=== PATIENT | female | born 2000 | race Caucasian/White ===

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

== ENCOUNTER 2018-02-18 22:11 | Emergency (ER) | payer OTHER, MEDICAID ==
[~2018-02-18] VITALS: Ht 142.2 cm; Wt 41.8 kg
[2018-02-18] MEDS ORDERED: ONDANSETRON ODT 4 MG PO ONE (22:30)
[2018-02-18] MEDS ORDERED: IBUPROFEN 200 MG TABLET PO ONE (22:30)
[2018-02-18 23:03] LABS: RAPID INFLUENZA A Negative (Negative); RAPID INFLUENZA B Negative (Negative)
[2018-02-18 23:06] VITALS: BP 107/78
[2018-02-18] MEDS ORDERED: ONDANSETRON ODT 4 MG ONE (23:17)
[2018-02-18] MEDS ORDERED: IBUPROFEN 600 MG TABLET ONE (23:17)
== END 2018-02-18 23:31 | disposition home or self-care (01) ==
LOC: ED 22:24
DX: J20.9 Acute bronchitis, unspecified (principal); B34.9 Viral infection, unspecified
CPT/HCPCS: 71046; 87400; 93005; 99284; Q0162

== ENCOUNTER 2018-05-14 15:28 | Emergency (ER) | payer OTHER, MEDICAID ==
[~2018-05-14] VITALS: Ht 142.2 cm; Wt 43.0 kg
[2018-05-14 15:29] VITALS: BP 117/82
--- NOTE | 2018-05-14 15:43 | NUR ---
"SOMETHING INVOLVING THIS (LEFT) LYMPHNODE AND TONSIL, THIS (RIGHT) NOSTIL HAS BEEN BLEEDING FROM BLOWING MY NOSE. IT'S GETTING BETTER BUT THIS COUGH IS BUGGING ME AND IT HURTS WHEN I SWOLLOW" PER TRIAGE NOTE OXYGEN SATS 97% AT RA HR 90-100'S
--- NOTE | 2018-05-14 16:42 | NUR ---
GIVEN ALL DC INSTRUCTION WITH PRESCRIPTION PT UNDERSTOOD PT UP AMBULATED TO CHECK OUT
== END 2018-05-14 16:44 | disposition home or self-care (01) ==
LOC: ED 16:06
DX: J00 Acute nasopharyngitis [common cold] (principal); F17.200 Nicotine dependence, unspecified, uncomplicated; F32.9 Major depressive disorder, single episode, unspecified
CPT/HCPCS: 71046; 99283

== ENCOUNTER 2019-01-14 07:28 | Inpatient (IN) | payer OTHER, MEDICAID ==
[~2019-01-14] VITALS: Ht 142.2 cm; Wt 52.7 kg
[~2019-01-14 07:28] MED LIST changes: -ALPR-475 PO; +ALPR0.5T7 PO
[2019-01-14] MEDS ORDERED: OXYTOCIN 30U/ 0.9% NaCL 500ML 500 ML IV PRN (07:37)
[2019-01-14] MEDS ORDERED: D5%-LACTATED RINGERS 1,000 ML IV SCH (07:37)
[2019-01-14] MEDS ORDERED: OXYTOCIN 30U/ 0.9% NaCL 500ML 500 ML IV ONE (07:37)
[2019-01-14] MEDS ORDERED: NEWBORN KIT ONE (07:43)
[2019-01-14] MEDS ORDERED: OXYTOCIN 30U/ 0.9% NaCL 500ML 500 ML ONE ×3 (07:43→23:59)
[2019-01-14] MEDS ORDERED: FENTANYL PF 100 MCG/2ML IVPush PRN (08:00)
[2019-01-14] MEDS ORDERED: TERBUTALINE 1 MG/ML, 1ML SQ PRN (08:00)
[2019-01-14] MEDS ORDERED: TERBUTALINE 1 MG/ML, 1ML IVPush PRN (08:00)
[2019-01-14] MEDS ORDERED: PENICILLIN GK 5,000,000 UNITS in DEXTROSE 5% 100 ML IVPB ONE (08:00)
[2019-01-14] MEDS ORDERED: ONDANSETRON 2MG/ML, 2ML IVPush PRN ×2 (08:00→14:30)
[2019-01-14] MEDS ORDERED: CALCIUM CARBONATE 500 MG TAB.CHEW PO PRN ×2 (08:00→23:30)
[2019-01-14] MEDS ORDERED: FENTANYL PF 100 MCG/2ML IV PRN (08:00)
[2019-01-14] MEDS: LACTATED RINGERS 1,000 ML IV SCH ×2 (08:52→11:11)
[2019-01-14 09:03] LABS: BASOPHILS # (AUTO) 0.03 x10^3/uL (0-0.3); BASOPHILS % (AUTO) 0 % (0-1); EOSINOPHILS # (AUTO) 0.12 x10^3/uL (0-0.8); EOSINOPHILS % (AUTO) 1 % (1-7); LYMPHOCYTES # (AUTO) 2.06 x10^3/uL (1-6.1); LYMPHOCYTES % (AUTO) 19 % (22-44); MD NO; MEAN CORPUSCULAR HEMOGLOBIN 30.6 pg (27.0-34.8); MEAN CORPUSCULAR HGB CONC 33.3 g/dL (32.4-35.8); MEAN PLATELET VOLUME 8.2 fL (7.4-10.4); MONOCYTES # (AUTO) 0.82 x10^3/uL (0-1.4); MONOCYTES % (AUTO) 8 % (2-9); NEUTROPHILS # (AUTO) 7.85 x10^3/uL (1.8-8.0); NEUTROPHILS % (AUTO) 72 % (42-75); PLATELET COUNT 287 x10^3/uL (130-400); RED BLOOD COUNT 4.39 x10^6/uL (3.82-5.3)
[2019-01-14 09:42] LABS: AMPHETAMINE SCREEN, URINE Negative (Negative); BARBITURATE SCREEN, URINE Negative (Negative); BENZODIAZEPINE SCREEN, URINE Negative (Negative); CANNABINOID SCREEN, URINE Negative (Negative); COCAINE SCREEN, URINE Negative (Negative); METHADONE SCREEN, URINE Negative (Negative); OPIATE SCREEN, URINE Negative (Negative)
[2019-01-14] MEDS ORDERED: LIDOCAINE 1%, 20ML ONE (10:54)
[2019-01-14] MEDS ORDERED: MISOPROSTOL 200 MCG TABLET ONE (10:54)
[2019-01-14] MEDS: PENICILLIN GK 2,500,000 UNITS in DEXTROSE 5% 100 ML IVPB SCH ×3 (12:54→20:49)
[2019-01-14] MEDS ORDERED: FENTANYL/BUPIV./NS/PF 250 ML EPIDCONT ONE (13:05)
[2019-01-14] MEDS ORDERED: BUPIVACAINE 0.25% ONE (13:26)
[2019-01-14] MEDS ORDERED: FENTANYL/BUPIV./NS/PF 250 ML EPIDCONT SCH (14:30)
[2019-01-14] MEDS ORDERED: DIPHENHYDRAMINE 50 MG/ML, 1ML IVPush PRN (14:30)
[2019-01-14] MEDS ORDERED: NALOXONE 0.4 MG/ML, 1ML IVPush PRN (14:30)
[2019-01-14] MEDS ORDERED: EPHEDRINE 50 MG/ML, 1ML IVPush PRN (14:30)
[2019-01-14] MEDS ORDERED: LACTATED RINGERS 1,000 ML IV SCH (15:00)
[2019-01-14] MEDS ORDERED: LACTATED RINGERS 1,000 ML IVBOLUS PRN (15:00)
[2019-01-14] MEDS ORDERED: METHYLERGONOVINE 0.2 MG/ML IM ONE (15:28)
[2019-01-14] MEDS ORDERED: DIPHENHYDRAMINE 50 MG/ML, 1ML ONE (19:55)
[2019-01-14] MEDS ORDERED: ONDANSETRON 2MG/ML, 2ML ONE ×2 (19:55→22:36)
[2019-01-14] MEDS ORDERED: TRANEXAMIC ACID 100 MG/ML, 10ML ONE (22:20)
[2019-01-14] MEDS ORDERED: CARBOPROST TROMETHAMINE 250 MCG/ML, 1ML IM PRN ×2 (22:30→23:30)
[2019-01-14] MEDS ORDERED: MISOPROSTOL 200 MCG TABLET PR PRN ×2 (22:30→23:30)
[2019-01-14] MEDS ORDERED: TRANEXAMIC ACID 100 MG/ML, 10ML IV ONE (22:30)
[2019-01-14] MEDS ORDERED: METHYLERGONOVINE 0.2 MG/ML IM PRN ×2 (22:30→23:30)
[2019-01-14] MEDS ORDERED: CEFAZOLIN 2,000 MG in SODIUM CHLORIDE 0.9% 50 ML IV ONE (23:00)
[2019-01-14 23:04] LABS: BASOPHILS # (AUTO) 0.08 x10^3/uL (0-0.3); BASOPHILS % (AUTO) 1 % (0-1); EOSINOPHILS # (AUTO) 0.02 x10^3/uL (0-0.8); EOSINOPHILS % (AUTO) 0 % (1-7); LYMPHOCYTES # (AUTO) 1.68 x10^3/uL (1-6.1); LYMPHOCYTES % (AUTO) 14 % (22-44); MD NO; MEAN CORPUSCULAR HEMOGLOBIN 30.9 pg (27.0-34.8); MEAN CORPUSCULAR HGB CONC 32.9 g/dL (32.4-35.8); MEAN CORPUSCULAR VOLUME 94.1 fL (80-100); MEAN PLATELET VOLUME 8.3 fL (7.4-10.4); MONOCYTES # (AUTO) 0.97 x10^3/uL (0-1.4); MONOCYTES % (AUTO) 8 % (2-9); NEUTROPHILS # (AUTO) 9.04 x10^3/uL (1.8-8.0); NEUTROPHILS % (AUTO) 77 % (42-75); PLATELET COUNT 300 x10^3/uL (130-400); RED CELL DISTRIBUTION WIDTH 15.6 % (9.6-15.2)
[2019-01-14 23:12] LABS: ALBUMIN 1.9 g/dL (3.4-5.0); ANION GAP 6 mmol/L (5-15); CALCIUM 7.8 mg/dL (8.5-10.1); CHLORIDE 113 mmol/L (98-107)
[2019-01-14 23:16] LABS: ALANINE AMINOTRANSFERASE 13 U/L (12-78); ALKALINE PHOSPHATASE 190 U/L (45-117); BILIRUBIN,TOTAL 0.6 mg/dL (0.2-1.0); CREATININE 0.78 mg/dL (0.55-1.02); TOTAL PROTEIN 5.4 g/dL (6.4-8.2)
[2019-01-14] MEDS ORDERED: METOCLOPRAMIDE 5 MG/ML, 2ML ONE (23:25)
[2019-01-14] MEDS ORDERED: METOCLOPRAMIDE 5 MG/ML, 2ML IV PRN (23:30)
[2019-01-14] MEDS ORDERED: RHOGAM FROM BLOOD BANK 1 NOTE EA IM/IV ONE (23:30)
[2019-01-14] MEDS ORDERED: DIPH,PERTUSS(ACELL),TET VAC/PF NC IM-VACC PRN (23:30)
[2019-01-14] MEDS ORDERED: MAGNESIUM HYDROXIDE 8%, 30ML UDC PO PRN (23:30)
[2019-01-14] MEDS ORDERED: ONDANSETRON 2MG/ML, 2ML IV PRN (23:30)
[2019-01-14] MEDS ORDERED: OXYcodone/APAP 5/325MG TABLET PO PRN ×2 (23:30)
[2019-01-14] MEDS ORDERED: ACETAMINOPHEN 325 MG TABLET PO PRN ×3 (23:30)
[2019-01-14] MEDS ORDERED: MEASLES,MUMPS&RUBELLA VACC/PF 0.5 ML SQ-VACC PRN (23:30)
[2019-01-14] MEDS ORDERED: [UNRECOGNIZED DRUG - REMARK] MC SCH (23:45)
[2019-01-14 23:48] LABS: INTERNATIONAL NORMALIZED RATIO 0.93 (0.93-1.1); PROTHROMBIN TIME 9.8 Seconds (9.6-11.5)
[2019-01-14] MEDS ORDERED: ACETAMINOPHEN 325 MG TABLET ONE (23:52)
[2019-01-15] MEDS ORDERED: GENTAMICIN 0 MG in SODIUM CHLORIDE 0.9% 100 ML IV ONE
[2019-01-15] MEDS: OXYTOCIN 30U/ 0.9% NaCL 500ML 500 ML IV SCH ×3 (00:01→19:03)
[2019-01-15] MEDS ORDERED: GENTAMICIN PER PHARMACY MC PRN (00:30)
[2019-01-15] MEDS ORDERED: PHARMACOKINETIC MONITORING MC PRN (00:30)
[2019-01-15] MEDS ORDERED: PHARMACOKINETIC CONSULTATION MC ONE (00:30)
[2019-01-15] MEDS: GENTAMICIN 280 MG in SODIUM CHLORIDE 0.9% 100 ML IV SCH (00:52)
[2019-01-15 02:10] VITALS: BP 96/61
[2019-01-15 02:39] LABS: MEAN CORPUSCULAR HGB CONC 33.1 g/dL (32.4-35.8); MEAN CORPUSCULAR VOLUME 93.8 fL (80-100); MEAN PLATELET VOLUME 8.3 fL (7.4-10.4); PLATELET COUNT 308 x10^3/uL (130-400); RED BLOOD COUNT 3.61 x10^6/uL (3.82-5.3); RED CELL DISTRIBUTION WIDTH 15.6 % (9.6-15.2)
[2019-01-15 02:52] LABS: MD YES
[2019-01-15 02:55] LABS: <PLATELET ESTIMATE> ADEQUATE; ANISOCYTOSIS 1+; BAND#(MANUAL) 0.91 x10^3/uL; BANDS%(MANUAL) 4 % (0-7); LARGE PLATELETS 1+; LYMPH#(MANUAL) 2.72 x10^3/uL (1-6.1); LYMPHS% (MANUAL) 12 % (22-44); METAMYELOCYTES# (MANUAL) 0.23 x10^3/uL (0-0); METAMYELOCYTES% (MANUAL) 1 % (0-1); MONOS#(MANUAL) 0.91 x10^3/uL (0.3-2.7); MONOS% (MANUAL) 4 % (2-9); SEG#(MANUAL) 17.93 x10^3/uL (1.8-8); SEGS% (MANUAL) 79 % (42-75)
[2019-01-15 06:06] LABS: MEAN CORPUSCULAR HEMOGLOBIN 30.3 pg (27.0-34.8); MEAN CORPUSCULAR VOLUME 91.9 fL (80-100); MEAN PLATELET VOLUME 7.9 fL (7.4-10.4); PLATELET COUNT 264 x10^3/uL (130-400); RED BLOOD COUNT 2.94 x10^6/uL (3.82-5.3); RED CELL DISTRIBUTION WIDTH 15.8 % (9.6-15.2)
[2019-01-15 06:26] LABS: BASOPHILS # (AUTO) 0.04 x10^3/uL (0-0.3); BASOPHILS % (AUTO) 0 % (0-1); EOSINOPHILS % (AUTO) 0 % (1-7); LYMPHOCYTES # (AUTO) 1.33 x10^3/uL (1-6.1); LYMPHOCYTES % (AUTO) 7 % (22-44); MD SCAN; MONOCYTES # (AUTO) 1.69 x10^3/uL (0-1.4); MONOCYTES % (AUTO) 9 % (2-9); NEUTROPHILS % (AUTO) 84 % (42-75)
[2019-01-15] MEDS: CEFAZOLIN PMX 2GM/50ML 50 ML IVPB SCH ×3 (06:50→22:52)
[2019-01-15] MEDS: DOCUSATE 100 MG CAPSULE PO PRN ×2 (07:32→19:55)
[2019-01-15] MEDS: IBUPROFEN 600 MG TABLET PO PRN ×3 (07:32→19:55)
[2019-01-15] MEDS: PRENATAL VIT/IRON/FA 1 EACH TABLET PO SCH (07:32)
[2019-01-15 07:36] VITALS: BP 108/71
[2019-01-15 11:00] VITALS: BP 131/64
[2019-01-15 16:45] VITALS: BP 113/76
[2019-01-15 20:14] VITALS: BP 107/69
[2019-01-15] MEDS: SIMETHICONE 80 MG CHEW TAB PO PRN (23:55)
[2019-01-16] MEDS: GENTAMICIN 280 MG in SODIUM CHLORIDE 0.9% 100 ML IV SCH (00:47)
[2019-01-16] MEDS: OXYTOCIN 30U/ 0.9% NaCL 500ML 500 ML IV SCH ×2 (05:03→15:03)
[2019-01-16 07:15] VITALS: BP 111/72
[2019-01-16] MEDS: IBUPROFEN 600 MG TABLET PO PRN ×3 (07:31→21:31)
[2019-01-16] MEDS: SIMETHICONE 80 MG CHEW TAB PO PRN ×2 (08:41→21:31)
[2019-01-16] MEDS: PRENATAL VIT/IRON/FA 1 EACH TABLET PO SCH (08:42)
[2019-01-16] MEDS: DOCUSATE 100 MG CAPSULE PO PRN (08:42)
[2019-01-16] MEDS: CITALOPRAM 20 MG TABLET PO SCH (13:48)
[2019-01-16 21:00] VITALS: BP 111/79
[2019-01-17] MEDS: OXYTOCIN 30U/ 0.9% NaCL 500ML 500 ML IV SCH (00:35)
[2019-01-17] MEDS: IBUPROFEN 600 MG TABLET PO PRN ×2 (03:39→09:34)
[2019-01-17 09:15] VITALS: BP 113/76
[2019-01-17] MEDS: CITALOPRAM 20 MG TABLET PO SCH (09:34)
[2019-01-17] MEDS: SIMETHICONE 80 MG CHEW TAB PO PRN (09:34)
[2019-01-17] MEDS: PRENATAL VIT/IRON/FA 1 EACH TABLET PO SCH (09:34)
[2019-01-17] MEDS: DOCUSATE 100 MG CAPSULE PO PRN (09:34)
[2019-01-17] MEDS ORDERED: IBUP-1222 PO (15:56)
== END 2019-01-17 16:36 | disposition home or self-care (01) | DRG 796 ==
LOC: LDIP 07:28 → 2NW 01-15 01:51
PROVIDERS: ADMIT Obstetrics & Gynecology; ATTEND Obstetrics & Gynecology
PROC: 10E0XZZ Delivery of Products of Conception, External Approach (ICD-10-PCS; principal; 2019-01-14)
PROC: 10D17ZZ Extraction of Products of Conception, Retained, Via Natural or Artificial Opening (ICD-10-PCS; 2019-01-14)
PROC: 0UQMXZZ Repair Vulva, External Approach (ICD-10-PCS; 2019-01-14)
PROC: 10907ZC Drainage of Amniotic Fluid, Therapeutic from Products of Conception, Via Natural or Artificial Opening (ICD-10-PCS; 2019-01-14)
PROC: 3E033VJ Introduction of Other Hormone into Peripheral Vein, Percutaneous Approach (ICD-10-PCS; 2019-01-14)
PROC: 3E0R3BZ Introduction of Anesthetic Agent into Spinal Canal, Percutaneous Approach (ICD-10-PCS; 2019-01-14)
PROC: 00HU33Z Insertion of Infusion Device into Spinal Canal, Percutaneous Approach (ICD-10-PCS; 2019-01-14)
DX: O99.824 Streptococcus B carrier state complicating childbirth (principal); O41.1230 Chorioamnionitis, third trimester, not applicable or unspecified; Z37.0 Single live birth; D62 Acute posthemorrhagic anemia; Z3A.39 39 weeks gestation of pregnancy; O43.123 Velamentous insertion of umbilical cord, third trimester; O72.1 Other immediate postpartum hemorrhage; O99.52 Diseases of the respiratory system complicating childbirth; O99.344 Other mental disorders complicating childbirth; J45.909 Unspecified asthma, uncomplicated; F32.9 Major depressive disorder, single episode, unspecified; F41.9 Anxiety disorder, unspecified; O70.0 First degree perineal laceration during delivery; O99.02 Anemia complicating childbirth
CPT/HCPCS: 36415; J3490; J7121; 59160; 80053; 80170; 80307; 82803; 85025; 85384; 85610; 85730; 86850; 86900; G0378; J0690; J2405; J2540; J1200; J1580; J2210; J2590; J2765; J3010; J7120